=== PATIENT | male | born 1950 | race Caucasian/White ===

== ENCOUNTER → 2023-10-07 11:04 | Outpatient (REF) | payer BC, SELFPAY | LOC: RAD 11:04 | PROVIDERS: ATTENDING PHYSICIAN Student in an Organized Health Care Education/Training Program | DX: M79.672 Pain in left foot (principal) | CPT/HCPCS: 73630 ==

== ENCOUNTER 2024-01-29 09:58 | Emergency (ER) | payer BC, SELFPAY ==
[2024-01-29 10:00] VITALS: BP 112/89
[2024-01-29 10:31] VITALS: BMI 26.2
--- NOTE | 2024-01-29 10:42 | EDRN ---
Yasmeen Alvarez PA in room w/ pt at this time.
--- NOTE | 2024-01-29 11:02 | ED.GENMED ---
History of Present Illness
General
Chief Complaint: Musculo-Skeletal Complaint
Source: patient
Time Seen by Provider: 01/29/24 10:39
History of Present Illness
History of Present Illness:
73-year-old male with past medical history of GERD and chronic back pain presenting to the emergency department for evaluation of pain to the left lower back that is radiating down his left hip, worse when standing or sitting, associated with
paresthesia. Patient states that he has had chronic back pain and has been treated by pain management as well as neurology in the past. States has been doing quite well recently and started with this pain 2 days ago upon awakening. He states he
cannot think of any exacerbating factors. He did see his neurologist a few weeks ago who ordered a new MRI as patient has not had an MRI since 2019. Patient attempted some anti-inflammatories with minimal relief over the last 48 hours. Patient
denies any focal weakness or numbness, bowel or urinary incontinence, saddle anesthesia, fevers/chills, trauma/falls.
Past History
Past History
ED Past Medical History: GERD
ED Past Surgical History: Other
Social History
Tobacco: Non-smoker
Alcohol: None
Drug: None
Personal:
Living: with family
Employment: Employed
Family History
Family History: Other (Noncontributory)
Review of Systems
Review of Systems
All Other Systems: ROS reviewed and negative except as documented in HPI and ROS
Phy Exam
Physical Exam
Physical Exam:
GENERAL: Alert , in no apparent distress
EYE: clear conjunctiva b/l
NECK: Supple
ENT: mmm.
BACK: Normal range of motion, no focal tenderness, no midline bony tenderness, no rashes. Tightening sensation with forward flexion
NEUROLOGICAL: Alert and oriented, no focal neuro deficits. Patellar deep tendon reflexes intact and equal bilaterally, sensation grossly intact and equal to light touch bilateral lower extremities, negative straight leg raise bilateral
SKIN: Warm and dry, skin intact.
MUSCULOSKELETAL: No edema, well perfused. EHL intact bilaterally
PSYCH: Normal and appropriate interaction.
Scores
Heart Failure Risk
Heart Failure Risk Score: Not Applicable
Heart Score for Chest Pain Patients
STEMI patient?: Not applicable
Withdrawal Assessment of Alcohol
Withdrawal Assessment Completed?: Not applicable
Course
Orders/Labs/Results
Orders:
Orders
01/29/24 11:01
Dexamethasone Sod Phosphate [Decadron] 10 mg IM NOW STA
Diazepam [Valium] 5 mg PO NOW STA
Lidocaine [Lidocaine 4% Patch] 1 patch TOPICAL NOW STA
Apply Lidocaine patch(s) to:: left lower back
Vital Signs
Initial and Last Documented VS:
Initial Vital Signs
Temp Pulse Resp BP Pulse Ox
98.2 F 70 18 112/89 99
01/29/24 10:00 01/29/24 10:00 01/29/24 10:00 01/29/24 10:00 01/29/24 10:00
Last Documented Vital Signs
Temp Pulse Resp BP Pulse Ox
98.2 F 66 16 123/85 97
01/29/24 10:00 01/29/24 11:25 01/29/24 11:25 01/29/24 11:25 01/29/24 11:25
MDM/Problems Addressed
Differential Diagnosis Includes:
Spinal stenosis, disc herniation, nerve impingement, I do not have concern for infectious etiology nor acute neurologic emergent pathologies
MDM/Problems Addressed:
73-year-old male presenting to the emergency department for evaluation of left-sided lower back pain radiating down his left leg. Pain with standing or sitting. Somewhat relieved when laying flat. Patient has prescription for new MRI just is yet
to be scheduled for this. Anti-inflammatories with no relief. Based off presentation I would not be surprised if patient has progression of his already known degenerative findings on his MRI. I did offer x-ray imaging however patient declines.
Explained why am unable to obtain emergent MRI today. Will attempt treatment with steroid, muscle relaxant and topical agents. I reviewed patient's MRI from 1999 which showed
IMPRESSION:
8 mm of degenerative anterolisthesis of L4 upon L5. At L4/5, anterolisthesis contributes to severe spinal canal stenosis and severe bilateral foraminal stenosis. Degree of spinal canal stenosis is slightly worse than on previous MRI. Degree of
foraminal stenosis is also slightly worse than previously
Mild to moderate degenerative findings elsewhere in lumbar spine.
At T10/11, 3 mm right paracentral disc protrusion causes mild flattening the cord. At T11/12, 2 mm left paracentral disc protrusion touches, but does not flatten the cord. These are new findings.
I did also encourage the patient to contact his pain management provider as well as neurologist. Discussed return precautions to the ER. Patient is otherwise stable for discharge home
*Pulse Oximetry
Patient hypoxic: no
*Critical Care Note
Total Time (30-74mins, 75-104mins- exclusive of procedures): Not Applicable
Data Reviewed
Review of Other/Old Records Reveals: Records and Radiology Studies
ED Attending Note
-
Portions of this chart may have been created with voice recognition software.� Occasional wrong word or��sound alike� substitutions may have occurred due to the inherent limitations of voice recognition software.
Discharge Plan
Departure
Patient Disposition: Home (Routine Discharge)
Date of Disposition: 01/29/24
Time of Disposition: 11:02
Patient with high blood pressure during this ER visit?: No
Discharge Problem:
Left lumbar radiculopathy
Instructions: Radiculopathy (DC)
Prescriptions:
New
methylprednisolone [Medrol (King)] 4 mg tablets,dose pack
4 mg PO DIRECTED Qty: 21 0RF
diazepam [Valium] 5 mg tablet
5 mg PO BID PRN (Reason: muscle spasm) Qty: 10 0RF
lidocaine [Lidoderm] 5 % adhesive patch,medicated
1 patch topical DAILY Qty: 30 0RF
No Action
docosahexaenoic acid-epa 1 CAP capsule
1 cap PO DAILY
multivitamin with folic acid [Tab-A-Jesse] 1 TABLET tablet
1 tab PO DAILY
Cyanocobalamin (Vitamin B-12)
1 tab PO DAILY
diphenhydramine HCl [Banophen] 25 MG capsule
25 mg PO .Q4-6HPRN PRN (Reason: itching) Qty: 20 0RF
methylprednisolone [Medrol (King)] 4 MG tablets,dose pack
4 tab PO . DIRECT Qty: 1 0RF
doxycycline hyclate 100 MG capsule
100 mg PO BID Qty: 20 0RF
Interventions
Interventions:
*Risk Screen - Suicide Last Done: 01/29/24 10:00
*General Assessment Last Done: 01/29/24 10:00
*Neglect/Abuse Screening Last Done: 01/29/24 10:00
ED- Fall Risk Assessment Last Done: 01/29/24 10:31
*ED COVID-19 Vaccine History Last Done: 01/29/24 10:31
*Nursing Disposition Last Done: 01/29/24 11:27
ED-Musculoskeletal Assessment Last Done: 01/29/24 10:31
Discharge Date and Time
Discharge Date/Time: 01/29/24 11:28
Print Language: VIET[place]ESE
[2024-01-29] MEDS: DECADRON 10 MG IM (11:18)
[2024-01-29] MEDS: LIDOCAINE 4% PATCH 1 PATCH TOPICAL (11:19)
[2024-01-29] MEDS: VALIUM 5 MG PO (11:19)
[2024-01-29 11:25] VITALS: BP 123/85
== END 2024-01-29 11:28 | disposition home or self-care (01) ==
LOC: EMR 09:58
PROVIDERS: EMERGENCY PHYSICIAN Emergency Medicine; FAMILY PHYSICIAN Family Medicine; REFERRING PHYSICIAN Specialist
DX: M51.16 Intervertebral disc disorders with radiculopathy, lumbar region (principal); M51.24 Other intervertebral disc displacement, thoracic region; M48.061 Spinal stenosis, lumbar region without neurogenic claudication; M43.16 Spondylolisthesis, lumbar region; M54.50 Low back pain, unspecified; M25.552 Pain in left hip; K21.9 Gastro-esophageal reflux disease without esophagitis; G89.29 Other chronic pain; Z88.6 Allergy status to analgesic agent; Z91.013 Allergy to seafood
CPT/HCPCS: 99284; 96372

== ENCOUNTER → 2024-02-01 16:41 | Outpatient (REF) | payer BC, SELFPAY | LOC: HWRAD 16:41 | PROVIDERS: ATTENDING PHYSICIAN Internal Medicine; FAMILY PHYSICIAN Family Medicine; REFERRING PHYSICIAN Chiropractor | DX: M54.59 Other low back pain (principal); M54.16 Radiculopathy, lumbar region; M47.817 Spondylosis without myelopathy or radiculopathy, lumbosacral region; M48.062 Spinal stenosis, lumbar region with neurogenic claudication; M43.16 Spondylolisthesis, lumbar region | CPT/HCPCS: 72110 ==

== ENCOUNTER → 2024-02-24 17:15 | Outpatient (REF) | payer BC, SELFPAY | LOC: PAVMRI 17:15 | PROVIDERS: ATTENDING PHYSICIAN Internal Medicine; FAMILY PHYSICIAN Family Medicine | DX: M54.9 Dorsalgia, unspecified (principal); M54.16 Radiculopathy, lumbar region; M47.817 Spondylosis without myelopathy or radiculopathy, lumbosacral region; M48.062 Spinal stenosis, lumbar region with neurogenic claudication; M43.16 Spondylolisthesis, lumbar region | CPT/HCPCS: 72148 ==

== ENCOUNTER → 2024-03-22 08:20 | Outpatient (REF) | payer BC, SELFPAY | LOC: RAD 08:20 | PROVIDERS: ATTENDING PHYSICIAN Specialist; FAMILY PHYSICIAN Student in an Organized Health Care Education/Training Program | DX: M48.062 Spinal stenosis, lumbar region with neurogenic claudication (principal) | CPT/HCPCS: 93922; 93925 ==

== ENCOUNTER 2024-10-03 01:03 | Observation (INO) | payer BC, SELFPAY ==
[2024-10-02 21:55] VITALS: BP 134/86
[2024-10-02 22:25] LABS: % Basophils 0.4 % (0-2); % Eosinophils 4.7 % (0-6); % Immature Granulocytes 0.4 % (0-0.5); % Lymphocytes 26.8 % (20.5-51.1); % Monocytes 7.8 % (1.7-9.3); % Neutrophils 59.9 % (42.2-75.2); Absolute Eosinophils 0.4 10^3/uL (0-0.7); Absolute Lymphocytes 2.1 10^3/uL (1.2-3.4); Absolute Monocytes 0.6 10^3/uL (0.1-0.6); Absolute Neutrophils 4.7 10^3/uL (1.4-6.5); Hematocrit 41.6 % (39.0-52.0); Hemoglobin 13.8 g/dL (13.0-18.0); Mean Corp Hgb Conc. 33.2 g/dL (33.0-37.0); Mean Corpuscular Hgb 30.3 pg (27.0-31.0); Mean Corpuscular Volume 91.2 fL (80.0-94.0); Mean Platelet Volume 9.5 fL (7.4-10.4); Nucleated Red Blood Cells % 0 % (-); Platelet Count 177 10^3/uL (130-400); Red Blood Cell Count 4.56 10^6/uL (4.70-6.10); Red Cell Dist. Width 14.4 % (11.5-14.5); White Blood Cell Count 7.9 10^3/uL (4.8-10.8)
[2024-10-02 22:26] LABS: ALT (SGPT) 22 U/L (0-50); AST (SGOT) 28 U/L (17-59); Albumin 4.3 g/dl (3.5-5.0); Alkaline Phosphatase 53 U/L (38-126); Blood Urea Nitrogen 17 mg/dl (9-20); Calcium 8.9 mg/dl (8.4-10.2); Carbon Dioxide 23 mmol/L (22-30); Chloride 102 mmol/L (98-107); Glucose 97 mg/dl (70-99); Potassium 3.9 mmol/L (3.5-5.1); Sodium 135 mmol/L (135-145); Total Bilirubin 0.5 mg/dl (0.2-1.3); Total Protein 6.7 g/dl (6.3-8.2); eGFR > 60.00
--- NOTE | 2024-10-02 23:02 | ED.CVA ---
History of Present Illness
General
Chief Complaint: CVA/TIA Symptoms
Source: patient
Exam Limitations: none
Time Seen by Provider: 10/02/24 22:58
Nursing documentation reviewed up to this point in time: agreed with
Onset of Stroke Symptoms
Onset of symptoms known: Yes
Date of onset of symptoms: 10/02/24
History of Present Illness
History of Present Illness:
73-year-old male with history of GERD states he and his were sitting watching TV at 930 this evening when they got up to go to bed and he could not move his right arm, he had a right facial droop and he could not talk. His observed this.
They state that the episode lasted 1 to 2 minutes and then totally subsided. She called EMS and by the time he got here he was totally asymptomatic which he remains.
Past History
Past History
ED Past Medical History: GERD
ED Past Surgical History: Orthopedic and Other
Social History
Tobacco: Non-smoker
Alcohol: Occasional
Drug: None
Personal:
Living: with family
Employment: Employed
Family History
Family History: Other (Noncontributory)
Review of Systems
Review of Systems
Allergies reviewed?: Yes
All Other Systems: ROS reviewed and negative except as documented in HPI and ROS
Constitutional: Denies fever or fatigue
Respiratory: Denies trouble breathing
Cardiac: Denies chest pain or syncope
ABD/GI: Denies abdominal pain, nausea or vomiting
: Denies dysuria or difficulty voiding
Musculoskeletal: Reports no symptoms
Skin: Reports no symptoms
Neurological: Reports weakness (9:30 PM episode of inability to move his right arm, right facial droop and difficulty speaking lasting 1 to 2 minutes, then completely resolved); Denies dizzy, headache or numbness
Phy Exam
Physical Exam
Physical Exam:
GENERAL: No acute distress. A&Ox3.
CONSTITUTIONAL: Afebrile.
EYES: clear, conjunctivae normal
ENMT: moist mucus membranes, Pharynx nl
RESPIRATORY: Regular respirations, nonlabored, lungs clear.
CARDIOVASCULAR: Regular rate and rhythm, no murmurs, no rubs.
GI: Soft, nontender, normal BS
MUSCULOSKELETAL: Moves with ease. Well perfused.
SKIN: Warm, dry, normal
PSYCH: Normal mood and affect. Well kept, interactive and appropriate
NEUROLOGIC: Awake, alert and oriented. Speech clear. Cranial nerves II through XII intact. No focal neurological deficits. Ambulates well with steady gait
Scores
NIH Stroke Score
Level of Consciousness: 0 - Alert
LOC Questions: 0-Answers both correctly
LOC Commands: 0-Performs both correctly
Best Horizontal Gaze: 0-Normal
Visual Triana: 0=Normal, no visual loss
Facial Palsy: 0=Normal, symmetrical
Motor - Right Arm: 0=No drift 10 seconds
Motor - Left Arm: 0=No drift 10 seconds
Motor - Right Le-No drift 5 seconds
Motor - Left Le-No drift 5 seconds
Limb Ataxia: 0-Absent
Sensation: 0-Normal
Best Language: 0-No aphasia
Dysarthria: 0-Normal
Extinction and Inattention: 0-No abnormality
Total Score:: 0
Course
Orders/Labs/Results
Orders:
Orders
10/02/24 22:01
Electrocardiogram (*1) Urgent
Reason for Study: TIA/Stroke
EKG- Treatment ONCE
10/02/24 22:03
Complete Blood Count/With Diff Urgent
Comprehensive Metabolic Panel Urgent
10/02/24 22:04
CT Head W/o Iv Contrast Urgent
Comment:
Reason For Exam: right arm paralysis,facial droop, slurred speech
10/02/24 23:00
Flush (0.9% Sodium Chloride) [Flush (Nss)] See Dose Instructions IV PER PROTOCOL
10/02/24 23:57
Admit/Transfer Patient As Directed
Co-Sign Provider:
Level of Care: Observation services
Assign to:: Telemetry
Physician / Group: Paddy
Diagnosis: CVA / TIA
Reason for Telemetry: CVA/TIA
Date to Stop Telemetry: 10/05/24
Time to Stop Telemetry: 11:00
Aspirin Chewable [Low Strength Aspirin] 324 mg PO NOW STA
PRN Pain Medication Management As Directed
May give lesser potent ordered pain med per pt: Yes
preference::
Protocol:: Medication orders for pain may be administered in a
manner that supports deferring to patient preference
when the pt is:
- Requesting an ordered lesser potent pain medication.
Least to most potent pain medications are defined
as: acetaminophen < NSAID < tramadol < opioids
(morphine, oxycodone, hydromorphone).
- Requesting a lesser dose of the same medication IF
ORDERED.
- Requesting a less intrusive route of administration
if both routes are prescribed by the provider (PO <
IV).
10/02/24 23:58
Code Status As Directed
Resuscitation Status: Full Code
10/03/24 01:10
Acetaminophen [Tylenol] 650 mg PO Q4HPRN PRN
10/03/24 01:10
Consult Notification Routine
Specialty to Notify: Neurology
Date consulting provider notified: 10/03/24
Time consulting provider notified: 07:34
Notified:: Provider
NEUROLOGY CONSULT Routine
Consulting Provider: Shannan Pantoja
Was physician already notified: No
Reason for consult: CVA / TIA
Activity As Directed
Activity Level: Ambulate
EKG with chest pain [ECG as needed] As Directed
ECG as needed for:: Chest Pain
I/O [Intake/ Output] As Directed
Frequency: Per unit guidelines
Neurological Checks As Directed
Frequency: q4h
Pneumatic Compression Sleeves As Directed
Type: Knee high
Vital Signs As Directed
Frequency: Per unit guidelines
Oxygen Therapy [O2 Therapy] [RESP] Routine
Titrate/Wean O2 to maintain O2 sat greater than (%): 94
Ot Eval And Treat Routine
PT Consult [Pt Eval And Treat] Routine
Activity Level: Ambulate
With Assistance
Speech Therapy Eval & Treat Routine
DX Deep Vein Thrombosis Video Routine
10/03/24 04:33
Basic Metabolic Panel IN AM
Cardiovascular Evaluation IN AM
Complete Blood Count/No Diff IN AM
Glycohemoglobin (HgbA1c) Routine
10/03/24 Breakfast
Regular
At Your Request: Full Participation
MR Brain Without Contrast IN AM
Comment:
Reason For Exam: CVA / TIA
Recent pill cam endoscopy?: No
10/03/24 08:00
Aspirin Chewable [Low Strength Aspirin] 81 mg PO DAILY
Clopidogrel Bisulfate [Plavix] 75 mg PO DAILY
10/05/24 11:00
DC Protocol for Telemetry ONCE
Abnormal Lab Results
10/02/24
22:03
RBC 4.56 L 10^6/uL
(4.70-6.10)
10/02/24 22:03
10/02/24 22:03
Vital Signs
Initial and Last Documented VS:
Initial Vital Signs
Temp Pulse Resp BP Pulse Ox
98 F 73 18 134/86 98
10/02/24 21:55 10/02/24 21:55 10/02/24 21:55 10/02/24 21:55 10/02/24 21:55
Last Documented Vital Signs
Temp Pulse Resp BP Pulse Ox
98.1 F 67 18 128/82 96
10/03/24 16:41 10/03/24 17:00 10/03/24 16:41 10/03/24 15:50 10/03/24 16:41
[employer] consulted with Physician
[employer] consulted with physician?: Yes
Name of Physician Consulted: Deejay
MDM/Problems Addressed
Differential Diagnosis Includes:
TIA, CVA
MDM/Problems Addressed:
73-year-old male with history of GERD states he and his were sitting watching TV at 930 this evening when they got up to go to bed and he could not move his right arm, he had a right facial droop and he could not talk. His observed this.
They state that the episode lasted 1 to 2 minutes and then totally subsided. She called EMS and by the time he got here he was totally asymptomatic which he remains.
Afebrile, NAD
Normal neuro exam
CBC, CMP normal
Head CT radiology report read: IMPRESSION: No acute intracranial abnormality noted.
Hospitalist notified of admission
*Critical Care Note
Total Time (30-74mins, 75-104mins- exclusive of procedures): Not Applicable
ED Attending Note
-
Portions of this chart may have been created with voice recognition software.� Occasional wrong word or��sound alike� substitutions may have occurred due to the inherent limitations of voice recognition software.
Discharge Plan
Departure
Patient Disposition: Admit
Date of Disposition: 10/02/24
Time of Disposition: 23:09
Admit to: Med/Surg
Presentation/result/management discussed w/ accepting MD/DO: Hospitalist
Condition: Good
Discharge Problem:
Brain TIA
Interventions
Interventions:
*Risk Screen - Suicide Last Done: 10/02/24 21:55
*General Assessment Last Done: 10/02/24 21:55
*Neglect/Abuse Screening Last Done: 10/02/24 21:55
*ED- Fall Risk Assessment Last Done: 10/02/24 21:55
*ED COVID-19 Vaccine History Last Done: 10/02/24 21:55
*Nursing Disposition Last Done: 10/03/24 01:02
ED- Pulmonary Assessment Last Done: 10/02/24 22:00
ED- Neurological Assessment Last Done: 10/02/24 22:00
ED- Cardiac Assessment Last Done: 10/02/24 22:00
Discharge Date and Time
Discharge Date/Time: 10/03/24 01:02
[2024-10-02 23:49] VITALS: BP 125/79
[2024-10-03] VITALS (10 sets, daily range): BP systolic 115–132; BP diastolic 76–91; PULSE 63; O2SAT 98
--- NOTE | 2024-10-03 | HPS.HSE ---
Family Physician
-
Family Physician: Jesus Coffman
Chief Complaint
-
RUE weakness, Aphasia
History of Present Illness
Patient is a 73y M with PMH significant for DDD and spinal stenosis who presents to ED complaining of RUE weakness, R facial droop and aphasia / dysarthria this evening. Patient states that he was watching TV and got up to prepare for bed.
Around 9:30 PM he noted that his RUE was 'limp' and weak. He had a numbness / facial droop on the R. He was unable to speak clearly to his who described slurred or garbled speech. No headache / vision changes / dizziness, etc. No RLE
symptoms. Symptoms last for 1-3 minutes in total and then resolved completely.
Patient presented to the ED for further evaluation and treatment.
Patient denies any prior h/o stroke, CA, etc.
He currently takes no medications.
Medical History
Past Medical History
Past Medical History: Reports Other
Additional Past Medical History:
DDD
Spinal Stenosis
Past Surgical History: Reports Other
Additional Past Surgical History:
Bilateral Herniorrhaphy
Jaw Surgery
RUE ORIF
Cataracts
Eye Surgery
Social History
Tobacco: Non-smoker
Alcohol: Occasional
Drug: None
Personal:
Living: With Family
Family History
Family History: Other (Mother: DM)
Allergies / Home Medications
Allergies reflects when Allergies were last updated in [facility].
Home Medications with original date entered in [facility]
Allergy/Medication List:
Allergies
Allergy/AdvReac Type Severity Reaction Status Date / Time
ibuprofen Allergy Unknown Unknown Verified 01/29/24 09:59
shellfish derived Allergy Unknown Unknown Verified 01/29/24 10:02
Home Medications
No Meds [No Current Medications] 10/02/24
Review of Systems
-
History Source: Patient
A 12 point ROS was completed and negative except as noted: Yes
Constitutional: Denies Fever or Chills
EENT: Denies Sore Throat
Respiratory: Denies Cough or Trouble Breathing
Cardiac: Denies Chest Pain or Palpitations
Abdomen/GI: Denies Abdominal Pain, Nausea, Vomiting or Diarrhea
: Denies Dysuria, Frequency or Flank Pain
Musculoskeletal: Denies Joint Pain or Edema
Neurological: Denies Dizzy or Headache
Psych: Denies Depression or Anxiety
Physical Exam
Vital Signs
Vital Signs
Temp Pulse Resp BP Pulse Ox
98 F 73 19 134/86 95
10/02/24 21:55 10/02/24 22:15 10/02/24 22:15 10/02/24 21:55 10/02/24 22:15
Physical Exam
General: Other (73y M in no distress.)
HEENT: Moist mucous membranes and PERRLA
Respiratory: Clear; No Wheezes, Rales or Rhonchi
Cardiac: S1/S2 and Regular Rhythm; No Murmur
GI: Soft, Non Tender, Non Distended and Normal Bowel Sounds
Musculoskeletal: No Clubbing, No Cyanosis and No Edema
Neuro: AO x 3 and Nonfocal/grossly intact
Laboratory Results
-
10/02/24 22:03
10/02/24 22:03
Laboratory Results
Total Bilirubin 0.5 mg/dl (0.2-1.3) 10/02/24 22:03
AST 28 U/L (17-59) 10/02/24 22:03
ALT 22 U/L (0-50) 10/02/24 22:03
Alkaline Phosphatase 53 U/L (38-126) 10/02/24 22:03
Impression/Plan
-
A/P: Patient is a 73y M with PMH significant for DDD and spinal stenosis who presents to ED complaining of RUE weakness, R facial droop and aphasia / dysarthria.
CVA / TIA
- Observe overnight for further evaluation and treatment.
- Symptoms sound most c/w L MCA TIA - resolved after only minutes.
- Symptom-free at present.
- DAPT. Neuro eval in AM.
- MRI in AM. Check lipids, A1C, etc.
- Follow for neurologic changes overnight.
DDD / Spinal Stenosis
- Long h/o lower extremity radiculopathy symptoms.
- Patient does report some recent / intermittent RUE tingling; however, other symptoms seem more c/w central event than radiculopathy.
DVT Prophylaxis: SCDs
Code Status: Full
[2024-10-03] MEDS: LOW STRENGTH ASPIRIN 324 MG PO (01:31)
--- NOTE | 2024-10-03 01:56 | PTCARENOTE ---
Patient arrived at approx 0100 from ED. Patient able to ambulate from stretcher to bed without incident. Patient assessed, oriented to room and informed of plan of care. NIHSS performed for baseline score of 0. VSS.
[2024-10-03 04:46] LABS: Hematocrit 42.9 % (39.0-52.0); Hemoglobin 14.4 g/dL (13.0-18.0); Mean Corp Hgb Conc. 33.6 g/dL (33.0-37.0); Mean Corpuscular Hgb 30.5 pg (27.0-31.0); Mean Corpuscular Volume 90.9 fL (80.0-94.0); Mean Platelet Volume 9.7 fL (7.4-10.4); Platelet Count 180 10^3/uL (130-400); Red Blood Cell Count 4.72 10^6/uL (4.70-6.10); Red Cell Dist. Width 14.3 % (11.5-14.5); White Blood Cell Count 6.7 10^3/uL (4.8-10.8)
[2024-10-03 05:15] LABS: Blood Urea Nitrogen 14 mg/dl (9-20); Calcium 9.1 mg/dl (8.4-10.2); Carbon Dioxide 26 mmol/L (22-30); Chloride 105 mmol/L (98-107); Glucose 96 mg/dl (70-99); HDL Cholesterol 78 mg/dl; LDL Cholesterol, Calculated 117 mg/dl; Potassium 4.3 mmol/L (3.5-5.1); Sodium 138 mmol/L (135-145); Total Cholesterol 205 mg/dl (50-199); Triglyceride 54 mg/dl (10-149); Very Low Density Lipoprotein 10 mg/dl (0-30); eGFR > 60.00
--- NOTE | 2024-10-03 07:19 | CON.NEURO ---
Consultation
Order
Date of Consultation: 10/03/24
Requesting Provider: Juan Thomason DO
Reason for Consult: TIA
Neurology Consultation Note.
HPI: This is a 73-year-old right-handed man who presented to [facility] on October 07, 2024 with transient right face /arm weakness and dysarthria that started at 21:30 on the day of presentation. Symptoms lasted for several seconds
with reported complete resolution. No reports of headache, change in language, vision with similar episodes in the past.
ER VS: 134/86, 73, afebrile.
EKG:NSR, QTc Int : 423 ms
PDMP: No recently prescribed medication
Labs: LDL�117, hemoglobin A1c�5.5.
CT head wo contrast�unremarkable.
PMH: Lumbar spinal stenosis
PSH: Bilateral cataract surgery, RUE ORIF, Bilateral Herniorrhaphy,
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
FH: Father in his 90s, mother in her 80s.
All: Iodine, ibuprofen
ROS: Constitutional: Negative. Negative for chills, fever and unexpected weight change.
HENT: Negative for ear pain, hearing loss, tinnitus and trouble swallowing.
Eyes: Negative. Negative for photophobia, pain and visual disturbance.
Respiratory: Negative for cough, choking and shortness of breath.
Cardiovascular: Negative for chest pain, palpitations and leg swelling.
Gastrointestinal: Negative for abdominal pain and vomiting.
Endocrine: Negative. Negative for cold intolerance.
Genitourinary: Negative for dysuria, flank pain and urgency.
Musculoskeletal: Positive intermittent back pain
Skin: Negative for rash.
Allergic/Immunologic: Negative. Negative for immunocompromised state.
Neurological: Positive for transient dysarthria in the right face and arm numbness and weakness
Psychiatric/Behavioral: Negative for behavioral problems, confusion and hallucinations.
General: Well developed. In no acute distress.
Cardio: Regular rate and rhythm without murmur. Extremities are without cyanosis or edema.
Neuro:
Mental Status: Alert, oriented to person, place, and date. Normal attention and recall. Good fund of knowledge. Follows complex requests across the midline. Comprehension, naming, and repetition intact. Immediate and delayed recall 3/3. Anxious
Cranial Nerves: Pupils are equally round, surgical. EOMs full. Visual veliz full to confrontation. No ptosis. No nystagmus. V1-V3 intact to light touch and pinprick bilaterally, symmetric. Face symmetric. Mildly impaired hearing AU. The
palate elevated well. SCMs and traps 5/5. Tongue midline. No dysarthria.
Motor: Normal bulk and tone. No pronator or arm drift. Strength 5/5 throughout. No clonus.
Reflexes: 2+ throughout the upper extremities and 0knees. Plantar responses flexor bilaterally.
Sensory: Normal vibration at the toes
Coordination: No dysmetria or tremor.
Gait: deferred
Assessment and Plan:
I. TIA
II. Severe L4/5 central spinal canal stenosis
III. DLP
-Continue Telemetry monitoring
-Brain MRI without mildred
- DAPT for 21 days followed by aspirin 81 mg once a day monotherapy lifelong
-Lipitor 40 mg QHS.
-TTE
-DVT prophylaxis.
I personally reviewed all radiology and labs along with past medical records pertinent to current medical problems. Total time spent in patient care is 60 minutes.
Thank you for allowing us to participate in the care of this patient. We will continue to follow. Please do not hesitate to contact us with any questions or concerns.
Subjective/Objective
Subjective Data
Date of Service: October 03, 2024
Objective Data
Vital Signs
Temp Pulse Resp BP Pulse Ox
36.7 C 57 18 115/82 97
10/03/24 06:34 10/03/24 05:15 10/03/24 06:34 10/03/24 04:25 10/03/24 06:34
Lab Results
10/03/24 04:33
10/03/24 04:33
Sodium 138 mmol/L (135-145) 10/03/24 04:33
Potassium 4.3 mmol/L (3.5-5.1) 10/03/24 04:33
BUN 14 mg/dl (9-20) 10/03/24 04:33
Glucose 96 mg/dl (70-99) 10/03/24 04:33
Calcium 9.1 mg/dl (8.4-10.2) 10/03/24 04:33
LDL Cholesterol, Calc 117 mg/dl 10/03/24 04:33
Patient Allergies
ibuprofen Allergy (Unknown, Verified 01/29/24 09:59)
Unknown
shellfish derived Allergy (Unknown, Verified 01/29/24 10:02)
Unknown
Medications
-
Active Medications
Generic Name Dose Route Start Last Admin
Trade Name Freq PRN Reason Stop Dose Admin
Acetaminophen 650 mg 10/03/24 01:10
Acetaminophen 325 Mg Tablet PO 10/31/24 01:09
Q4HPRN PRN
Mild Pain / Temp > 101
Aspirin 81 mg 10/03/24 08:00
Aspirin 81 Mg Chewable Tablet PO 10/31/24 07:59
DAILY VALENTIN
Clopidogrel Bisulfate 75 mg 10/03/24 08:00
Clopidogrel 75 Mg Tablet PO 10/31/24 07:59
DAILY VALENTIN
Sodium Chloride 0 flush 10/02/24 23:00
Sodium Chloride 0.9% (Flush) Syringe IV 10/30/24 22:59
PER PROTOCOL VALENTIN
Home Medications
�Medication �Instructions �Recorded
No Meds [No Current Medications] 10/02/24
Vital Signs and Labs
-
Vital Signs and Labs:
Vital Signs
Temp Pulse Resp BP Pulse Ox
36.7 C 57 18 115/82 97
10/03/24 06:34 10/03/24 05:15 10/03/24 06:34 10/03/24 04:25 10/03/24 06:34
Lab Results
10/03/24 04:33
10/03/24 04:33
Sodium 138 mmol/L (135-145) 10/03/24 04:33
Potassium 4.3 mmol/L (3.5-5.1) 10/03/24 04:33
BUN 14 mg/dl (9-20) 10/03/24 04:33
Glucose 96 mg/dl (70-99) 10/03/24 04:33
Calcium 9.1 mg/dl (8.4-10.2) 10/03/24 04:33
LDL Cholesterol, Calc 117 mg/dl 10/03/24 04:33
Medications
-
Medications:
Generic Name Dose Route Start Last Admin
Trade Name Freq PRN Reason Stop Dose Admin
Acetaminophen 650 mg 10/03/24 01:10
Acetaminophen 325 Mg Tablet PO 10/31/24 01:09
Q4HPRN PRN
Mild Pain / Temp > 101
Aspirin 81 mg 10/03/24 08:00 10/03/24 09:24
Aspirin 81 Mg Chewable Tablet PO 10/31/24 07:59 81 mg
DAILY VALENTIN Administration
Clopidogrel Bisulfate 75 mg 10/03/24 08:00 10/03/24 09:24
Clopidogrel 75 Mg Tablet PO 10/31/24 07:59 75 mg
DAILY VALENTIN Administration
Sodium Chloride 0 flush 10/02/24 23:00
Sodium Chloride 0.9% (Flush) Syringe IV 10/30/24 22:59
PER PROTOCOL VALENTIN
Home Medications
-
Home Medications
No Meds [No Current Medications] 10/02/24
[2024-10-03 09:11] LABS: Glycohemoglobin (HgbA1c) 5.5 % (4.0-5.6)
[2024-10-03] MEDS: PLAVIX 75 MG PO (09:24)
[2024-10-03] MEDS: LOW STRENGTH ASPIRIN 81 MG PO (09:24)
--- NOTE | 2024-10-03 09:41 | W.PN.HOSP.TC ---
Today's Communication/Plan
-
MRI of the brain. Echocardiogram. Ultrasound carotids.
Assessment / Plan
Assessment / Plan
Physical exam:
General: Well Developed, Well Nourished and No Apparent Distress
HEENT: Normocephalic, Atraumatic and Moist Mucous Membranes
Respiratory: Clear to Auscultation; Negative Wheezes, Rales or Rhonchi
Cardiac: Regular Rhythm and S1/S2
GI: Soft, Nontender and Nondistended
Musculoskeletal: No Clubbing, No Cyanosis and No Edema
Neuro: Awake, Alert and Oriented, no neurological deficits
Psych: Calm
A/P:
TIA
- Observe overnight for further evaluation and treatment.
- Symptoms sound most c/w L MCA TIA - resolved after only minutes.
- Symptom-free at present.
- DAPT. Neuro eval appreciated
- MRI in AM. Check lipids, A1C, etc.
- Follow for neurologic changes overnight.
DDD / Spinal Stenosis
- Long h/o lower extremity radiculopathy symptoms.
- Patient does report some recent / intermittent RUE tingling; however, other symptoms seem more c/w central event than radiculopathy.
DVT Prophylaxis: SCDs
Code Status: Full
Anticipated Discharge: Within 24 hours
Subjective/Interval History
-
Date of Service: October 03, 2024
Patient feels back to baseline
Objective Data
-
Labs:
Laboratory Results
10/02/24 10/03/24
22:03 04:33
WBC 7.9 6.7
Hgb 13.8 14.4
Hct 41.6 42.9
Plt Count 177 180
Sodium 135 138
Potassium 3.9 4.3
Chloride 102 105
Carbon Dioxide 23 26
BUN 17 14
Creatinine 1.0 0.9
Glucose 97 96
Calcium 8.9 9.1
Total Bilirubin 0.5
AST 28
ALT 22
Alkaline Phosphatase 53
Vital Signs:
Vital Signs
Temp Pulse Resp BP Pulse Ox
98.0 F 57 18 115/82 97
10/03/24 06:34 10/03/24 05:15 10/03/24 06:34 10/03/24 04:25 10/03/24 06:34
--- NOTE | 2024-10-03 09:44 | PTOTSP ---
PATIENT ABLE TO MOBILIZE INDEPENDENTLY ON LEVEL SURFACES WELL ELEVATIONS WITHOUT COMPLAINTS OR DIFFICULTY. PATIENT REQUIRING NO FURTHER ACUTE CARE SKILLED P.T. SERVICES. PATIENT CURRENTLY ATTENDING OUTPATIENT P.T. FOR ISSUES RELATED TO SPINAL
STENOSIS. WILL DISCHARGE FROM P.T. SERVICES.
--- NOTE | 2024-10-03 10:02 | PTOTSP ---
Speech Therapy Evaluation:
Oropharyngeal swallow appears grossly functional. Oral phase WFL. Pt with infrequent subtle throat clears during trials that did not increase from throat clears outside of PO intake, in which pt attributed to seasonal allergies. Pt with no hx of ST,
dysphagia, or PNAs. WBC WNL, pt on room air, and pt passed 3oz swallow screen.
Recommend:
1. Continue regular solids and thin liquids
2. Medications as tolerated (whole in water pt pt report)
3. General aspiration and reflux precautions
4. VICE PRESIDENT PAYMENT to f/u x1 to ensure tolerance of diet and determine if additional language/speech/cognitive testing warranted pending MRI.
--- NOTE | 2024-10-03 11:20 | CM ---
Reviewed chart. Met with and Mrs. Lentz to review discharge plans. He states prior to admission he resides with his spouse in a spilt level home with one step to enter. He states he has four steps to get to the main living area and five steps
to get to his bedroom/full bathroom. He states he has a powder room on the first floor. He states prior to admission he was independent with ambulation and adls. He states he does not have any DME in the home. He states he has a prescription plan
and uses [facility]. The discharge plan is to return home with his spouse when medically stable.
--- NOTE | 2024-10-03 15:26 | PTCARENOTE ---
Pt received this am awake, alert and oriented. Neuro checks WNL. OOB ad mariana, gait steady. Denies any pain or discomfort. Room air sat 97%. SR, rate in the 60's to 70's.
[2024-10-03] MEDS: LIPITOR 40 MG PO (17:50)
--- NOTE | 2024-10-03 18:05 | W.DCSUMMARY ---
Discharge Summary
Discharge Data
Date of Admission: 10/03/24
Date of Discharge: 10/03/24
-
Pending Results: No
Hospital Course
Patient is 72 years old male right-handed with history of lumbar spinal stenosis came into the hospital with transient right upper extremity weakness associated with right face weakness and dysarthria. Patient was kept in observation and neurology
consulted and stroke workup initiated. At the time of my evaluation patient is completely back to his baseline. Part of his stroke workup included MRI of the brain with no acute findings, echocardiogram with no acute findings, and ultrasound of
carotid with stenosis less than 50% bilaterally. Neurology recommended dual antiplatelet therapy for 3 weeks and then monotherapy afterwards along with statins. No other events were noticed throughout this hospital course. Patient did well with
PT OT and speech pathology. Patient being discharged in stable condition. I called patient after discharge and explained at length all details about his current workup and recommendations.
Discharge Plan
-
Patient Disposition: Home (Routine Discharge)
Discharge Diagnosis/Procedures: Transient ischemic attack.
Diet: Low Cholesterol
Activity: As tolerated
Blood Work: Please PCP to order CBC, BMP within 1 week
Referrals:
Shannan Pantoja MD [Active] - in two to four weeks
Jesus Coffman MD [Family Provider] - in less than 1 week
Prescriptions:
New
atorvastatin 40 mg Tablet
40 mg PO QPM 30 Days Qty: 30 0RF
aspirin 81 mg Tablet,Chewable
81 mg PO DAILY Qty: 30 0RF
clopidogrel 75 mg Tablet
75 mg PO DAILY 21 Days Qty: 21 0RF
Discharge Orders:
Discharge Patient (As Directed); Ordered 10/03/24
Ordered By: Erasto Gracia
Discharge Date and Time
Discharge Date/Time: 10/03/24 19:16
Print Language: SAUDI ARABIAN
[2024-10-03] MEDS: PREVNAR 20 0.5 ML IM (18:13)
--- NOTE | 2024-10-03 19:17 | PTCARENOTE ---
Pt discharged to home with his . Discharge instructions given and reviewed with good understanding and all questions answered.
[2024-10-05 05:06] LABS: Hepatitis C Antibody Negative (Negative)
== END 2024-10-03 19:16 | disposition home or self-care (01) ==
LOC: IVU 01:03
PROVIDERS: Emergency Medicine; ADMITTING PHYSICIAN Hospitalist; ATTENDING PHYSICIAN Hospitalist; CONSULT PHYSICIAN Psychiatry & Neurology Neurology; EMERGENCY PHYSICIAN Student in an Organized Health Care Education/Training Program; FAMILY PHYSICIAN Family Medicine
DX: G45.9 Transient cerebral ischemic attack, unspecified (principal); G83.21 Monoplegia of upper limb affecting right dominant side; R29.810 Facial weakness; K21.9 Gastro-esophageal reflux disease without esophagitis; R53.1 Weakness; I67.82 Cerebral ischemia; M48.061 Spinal stenosis, lumbar region without neurogenic claudication; I44.4 Left anterior fascicular block; R47.01 Aphasia; J34.1 Cyst and mucocele of nose and nasal sinus; M54.16 Radiculopathy, lumbar region; R47.1 Dysarthria and anarthria; Z83.3 Family history of diabetes mellitus; Z88.6 Allergy status to analgesic agent; Z91.013 Allergy to seafood; Z87.891 Personal history of nicotine dependence; Z86.73 Personal history of transient ischemic attack (TIA), and cerebral infarction without residual deficits; Z79.899 Other long term (current) drug therapy; Z91.041 Radiographic dye allergy status; Z23 Encounter for immunization
CPT/HCPCS: 70450; 70551; 80048; 80053; 80061; 83036; 85025; 85027; 86803; 90677; 92610; 93005; 93306; 93880; 97162; 97166; 99285; G0009; G0378

== ENCOUNTER → 2025-03-12 11:35 | Outpatient (REF) | payer BC, SELFPAY | LOC: HWRAD 11:35 | PROVIDERS: ATTENDING PHYSICIAN Physician Assistant Medical; FAMILY PHYSICIAN Student in an Organized Health Care Education/Training Program; REFERRING PHYSICIAN Neurological Surgery | DX: M54.50 Low back pain, unspecified (principal); M79.604 Pain in right leg; M79.605 Pain in left leg; M54.16 Radiculopathy, lumbar region; M43.16 Spondylolisthesis, lumbar region | CPT/HCPCS: 72131 ==

== ENCOUNTER → 2025-04-16 10:13 | Outpatient (REF) | payer BC, SELFPAY | LOC: MRI 3T 10:13 | PROVIDERS: ATTENDING PHYSICIAN Physician Assistant Medical | DX: M54.50 Low back pain, unspecified (principal); M79.604 Pain in right leg; M79.605 Pain in left leg | CPT/HCPCS: 72148 ==